=== PATIENT | female | born 2000 | race African-American/Black ===

== ENCOUNTER 2018-02-06 13:24 | Emergency (ER) | payer SELFPAY ==
[~2018-02-06] VITALS: Ht 157.5 cm; Wt 59.0 kg
[2018-02-06 13:30] VITALS: BP 111/68
--- NOTE | 2018-02-06 13:32 | NUR ---
PT AMBULATED TO BED 7
--- NOTE | 2018-02-06 13:37 | NUR ---
PT ARRIVED TO ROOM, NO ACUTE IDSTRESS NOTED. C/O L EYE ITCHINESS AND REDNESS. WILL CONTINUE TO MONITOR CLOSELY.
--- NOTE | 2018-02-06 14:00 | NUR ---
Patient discharged with v/s stable. Written and verbal after care instructions given and explained. Patient verbalized understanding. Ambulatory with steady gait. All questions addressed prior to discharge. Advised to follow up with PMD.
== END 2018-02-06 14:00 | disposition home or self-care (01) ==
LOC: MED 13:24
DX: B30.9 Viral conjunctivitis, unspecified (principal)
CPT/HCPCS: 99281

== ENCOUNTER 2018-02-14 14:59 | Emergency (ER) | payer SELFPAY ==
[~2018-02-14] VITALS: Ht 157.5 cm; Wt 67.1 kg
[2018-02-14 15:09] VITALS: BP 103/60
[2018-02-14 15:31] VITALS: BP 103/60
== END 2018-02-14 15:31 | disposition home or self-care (01) ==
LOC: MED 14:59
DX: H10.9 Unspecified conjunctivitis (principal)
CPT/HCPCS: 99283

== ENCOUNTER 2023-12-26 15:28 | Emergency (ER) | payer MEDICAID ==
[~2023-12-26] VITALS: Ht 157.5 cm; Wt 65.8 kg
[2023-12-26 15:48] VITALS: BP 110/78; PULSE 71; TEMP 98.4; O2SAT 99
[2023-12-26] MEDS ORDERED: IBUP-1842 PO (16:14)
[2023-12-26] MEDS: IBUPROFEN 400 MG TAB PO ONE (16:35)
== END 2023-12-26 16:38 | disposition home or self-care (01) ==
LOC: MED 15:28
DX: M67.431 Ganglion, right wrist (principal); Z79.899 Other long term (current) drug therapy
CPT/HCPCS: 99282